=== PATIENT | female | born 1960 | race Caucasian/White ===

== ENCOUNTER → 2021-05-31 | Outpatient (CLI) | payer OTHER ==
[2021-05-06 11:07] VITALS: BP 146/78
--- NOTE | 2021-06-01 07:41 | CARD ---
MR#: [id number] Date of Study: 05/31/2021 Ordering Physician: GUADALUPE FRANKLIN, Referring Physician: GUADALUPE FRANKLIN Tech: Temitope Tovar, [facility] APPROVED REPORT EXAM: Two-dimensional and M-mode echocardiogram with Doppler and color Doppler. Other Information Quality : AverageHR: 50bpm Rhythm : NSR INDICATION Atrial Fibrillation RISK FACTORS Hypertension Obesity Hyperlipidemia 2D DIMENSIONS RVDd3.4 (2.9-3.5cm)Left Atrium(2D)4.5 (1.6-4.0cm) IVSd1.3 (0.7-1.1cm)Aortic Root(2D)3.5 (2.0-3.7cm) LVDd5.3 (3.9-5.9cm)LVOT Diameter2.4 (1.8-2.4cm) PWd1.4 (0.7-1.1cm)LVDs3.3 (2.5-4.0cm) FS (%) 38.1 %SV93.3 ml LVEF(%)67.8 (>50%) Aortic Valve AoV Peak Michael.137.4cm/sAoV VTI32.5cm AO Peak GR.7.6mmHgLVOT Peak Michael.85.4cm/s AO Mean GR.4mmHgAVA (VMAX)2.92cm2 Mitral Valve MV E Qyfslsub92.0cm/sMV DECEL ZGUR030ww MV A Evqthdll21.8cm/sE/A Ratio1.9 Pulmonary Valve PV Peak Ehxjgqbv29.2cm/s Tricuspid Valve TR P. Veyvfyol214ge/sTR Peak Gr.27mmHg LEFT VENTRICLE The left ventricle is normal size. There is mild concentric left ventricular hypertrophy. The left ve ntricular systolic function is normal and the ejection fraction is within normal range. Estimated eje ction 55%. There is normal LV segmental wall motion. The left ventricular diastolic function and fill ing is normal for age. RIGHT VENTRICLE The right ventricle is normal size. There is normal right ventricular wall thickness. The right ventr icular systolic function is normal. ATRIA The left atrium is mildly dilated. The right atrium size is normal. The interatrial septum is intact with no evidence for an atrial septal defect or patent foramen ovale as noted on 2-D or Doppler imagi ng. AORTIC VALVE The aortic valve is normal in structure and function. Doppler and Color Flow revealed mild aortic reg urgitation. There is no significant aortic valvular stenosis. MITRAL VALVE The mitral valve is normal in structure and function. There is no evidence of mitral valve prolapse. There is no mitral valve stenosis. Doppler and Color-flow revealed mild mitral regurgitation. TRICUSPID VALVE The tricuspid valve is normal in structure and function. Doppler and Color Flow revealed no tricuspid valve regurgitation noted. Estimated PAP 30 mmHg. There is no tricuspid valve stenosis. PULMONIC VALVE Doppler and Color Flow revealed no pulmonic valvular regurgitation. There is no pulmonic valvular genesis nosis. GREAT VESSELS The aortic root is normal in size. The ascending aorta is normal in size. The IVC is normal in size a nd collapses >50% with inspiration. PERICARDIAL EFFUSION There is no evidence of significant pericardial effusion. Critical Notification Critical Value: No <Conclusion> The left ventricular systolic function is normal and the ejection fraction is within normal range. E stimated ejection 55%. There is normal LV segmental wall motion. Signed by : Jonatan Chandler, Electronically Approved : 06/01/2021 07:41:18
== END ==
LOC: ECHO 08:31
PROVIDERS: ATTEND Specialist
DX: I08.0 Rheumatic disorders of both mitral and aortic valves (principal)
CPT/HCPCS: 93306; C8929